=== PATIENT | female | born 1940 | race Caucasian/White ===

== ENCOUNTER → 2017-01-19 | Outpatient (CLI) | payer BC ==
[~2017-01-19] MED LIST: CTP1 PO; PRMUNK; SERT50TA PO; VERA120T15 PO
== END | disposition home or self-care (01) ==
LOC: C.LAB1850 11:23
PROVIDERS: ATTEND Nurse Practitioner Adult Health
DX: N39.0 Urinary tract infection, site not specified (principal)

== ENCOUNTER → 2017-01-20 | Outpatient (CLI) | payer BC ==
[2017-01-20 09:45] LABS: BASO % 1.3 %; BASO ABS # 0.06 K/uL (0-0.2); COMPLETE YES; EOS % 3.6 %; HEMATOCRIT 43.9 % (37-47); IG% 0.2 %; LYMPH % 35.3 %; LYMPH ABS # 1.59 K/uL (1.2-3.4); MEAN CELL VOLUME 91.3 fL (80-100); MEAN CORPUSCULAR HEMOGLOBIN 28.9 pg (25-34); MEAN CORPUSCULAR HGB CONC 31.7 g/dl (32-36); MEAN PLATELET VOLUME 9.7 fL (7.4-10.4); MONO % 11.3 %; NEUT % 48.3 %; PLATELET COUNT 282 K/uL (130-400); RED BLOOD COUNT 4.81 M/uL (4.2-5.4)
[2017-01-20 10:46] LABS: ALT/SGPT 24 U/L (12-78); AST/SGOT 15 U/L (15-37); BLOOD UREA NITROGEN 11 mg/dl (7-18); BUN/CREATININE RATIO 14.8 (10-20); CALCIUM 9.2 mg/dl (8.5-10.1); CARBON DIOXIDE 29 mmol/L (21-32); CHLORIDE 107 mmol/L (98-107); CREATININE 0.75 mg/dl (0.60-1.20); GLUCOSE 90 mg/dl (70-99); POTASSIUM 3.8 mmol/L (3.5-5.1); SODIUM 143 mmol/L (136-145)
--- NOTE | 2017-01-20 10:55 | DIAGNOSTIC IMAGING REPORT ---
RIGHT HIP UNILATERAL 2 VIEWS CLINICAL HISTORY: M25.559 Pain, joint, [id number] Right pain COMPARISON: None. DISCUSSION: Moderate degenerative narrowing right hip joint space. Mild sclerosis superior acetabular margin. Possible slight degree of disc blastic change. No evidence for acetabular protrusion. Large calcification central soft tissue pelvis possibly representing calcified uterine fibroid. There is no evidence for soft tissue swelling. IMPRESSION: Moderate degenerative change right hip. No acute process. Probable calcified uterine fibroid. Electronically signed by: Jan Thompson M.D. 01/20/2017 10:52 AM Dictated Date/Time: 01/20/2017 10:52 AM
[2017-01-20 10:56] LABS: ALB/GLOB RATIO 1.2 (0.9-2); ALKALINE PHOSPHATASE 79 U/L (45-117)
--- NOTE | 2017-01-25 11:46 | CODING QUERY MEDICAL NECESSITY ---
SUPPORTING DIAGNOSIS NEEDED A supporting diagnosis is required for the test/procedure performed on this patient in order for us to be reimbursed by the patient's insurance. Please provide a supporting diagnosis for the following test/procedure listed below next to the test name along with your signature. *If there is no additional diagnosis for this patient that would support the following test/procedure please document that below next to the test/procedure. Test(s)/Procedure(s) that require a supporting diagnosis: DOS 01/20 * Vitamin B12 DIAGNOSIS: * TSH DIAGNOSIS: Provider Signature: Date: Thank you Paz [facility] Information Management Once completed, please kindly fax back to [phone] For questions please call [phone]
== END | disposition home or self-care (01) ==
LOC: C.RAD1850 08:53
PROVIDERS: ATTEND Physician Assistant
DX: M25.559 Pain in unspecified hip (principal); R29.898 Other symptoms and signs involving the musculoskeletal system; E55.9 Vitamin D deficiency, unspecified; M16.11 Unilateral primary osteoarthritis, right hip

== ENCOUNTER → 2017-01-24 | Outpatient (CLI) | payer BC | END | disposition home or self-care (01) | LOC: C.LABSPEC 16:59 | PROVIDERS: ATTEND Nurse Practitioner Family | DX: N39.0 Urinary tract infection, site not specified (principal) ==

== ENCOUNTER → 2017-02-01 | Outpatient (CLI) | payer BC ==
--- NOTE | 2017-02-02 08:28 | MAMMOGRAPHY REPORT ---
BILATERAL DIGITAL SCREENING MAMMOGRAM WITH CAD: 02/01/2017 CLINICAL HISTORY: Routine screening. Patient has no complaints. TECHNIQUE: Bilateral CC, MLO, repeat right MLO and right XCCL views were obtained. Current study wa s also evaluated with a Computer Aided Detection (CAD) system. COMPARISON: Comparison is made to exams dated: 01/14/2016 mammogram, 10/02/2014 mammogram, 3 mammogram, 11/14/2012 mammogram, 05/08/2012 ultrasound, and 05/08/2012 mammogram - [facility]. BREAST COMPOSITION: The tissue of both breasts is heterogeneously dense, which may obscure small ma sses. FINDINGS: There are stable benign calcifications in the right breast. No new suspicious mass, archi tectural distortion or cluster of microcalcifications is seen. IMPRESSION: ACR BI-RADS CATEGORY 1: NEGATIVE There is no mammographic evidence of malignancy. A 1 year screening mammogram is recommended. The p atient will receive written notification of the results. Approximately 10% of breast cancers are not detected with mammography. A negative mammographic repor t should not delay biopsy if a clinically suggestive mass is present. Nirali Jean M.D. ay/:02/01/2017 15:54:32 [place] Filler: Ingrid MONTEMAYOR(R)(M), [facility] letter sent: Normal 1/2 BI-RADS Code: ACR BI-RADS Category 1: Negative
== END | disposition home or self-care (01) ==
LOC: C.MAMM 10:54
PROVIDERS: ATTEND Obstetrics & Gynecology
DX: Z12.31 Encounter for screening mammogram for malignant neoplasm of breast (principal)

== ENCOUNTER → 2017-03-15 | Outpatient (CLI) | payer BC ==
--- NOTE | 2017-03-15 15:44 | DIAGNOSTIC IMAGING REPORT ---
RIGHT HUMERUS MIN 2 VIEWS ROUTINE CLINICAL HISTORY: M79.601 Musculoskeletal arm pain, [id number] Right COMPARISON STUDY: None. FINDINGS: Small focus of calcification lateral to the humeral head consistent with supraspinatus calcific tendinitis. No fracture or dislocation within the right humerus. No soft tissue swelling. No radiopaque foreign bodies. IMPRESSION: 1. No fracture or dislocation within the right humerus. 2. Mild supraspinatus calcific tendinitis. Electronically signed by: Abdullahi Samayoa M.D. 03/15/2017 3:43 PM Dictated Date/Time: 03/15/2017 3:42 PM
== END | disposition home or self-care (01) ==
LOC: C.RAD1850 15:21
PROVIDERS: ATTEND Physician Assistant
DX: M79.601 Pain in right arm (principal)

== ENCOUNTER → 2017-08-24 | Outpatient (CLI) | payer BC | END | disposition home or self-care (01) | LOC: C.PAPS 08:03 | PROVIDERS: ATTEND Obstetrics & Gynecology | DX: Z12.4 Encounter for screening for malignant neoplasm of cervix (principal) ==

== ENCOUNTER → 2018-01-18 | Outpatient (CLI) | payer BC ==
[~2018-01-18] MED LIST changes: +ASPI81TA28 PO; +CALC600T37 PO; +CHOL1000 PO; +CRAN1TAB PO; +NITR-5 PO; +VERA180T33 PO
[2018-01-18 15:03] LABS: POTASSIUM 3.8 mmol/L (3.5-5.1)
== END | disposition home or self-care (01) ==
LOC: C.LAB1850 13:53
PROVIDERS: ATTEND Obstetrics & Gynecology
DX: Z01.818 Encounter for other preprocedural examination (principal)

== ENCOUNTER → 2018-01-25 | Day surgery (SDC) | payer BC ==
[2018-01-20 09:59] VITALS: Ht 157.5 cm; Wt 50.0 kg
--- NOTE | 2018-01-22 11:15 | HISTORY & PHYSICAL EXAMINATION ---
DATE OF ADMISSION: 01/25/2018 The patient is for surgery on 01/25/2018. CHIEF COMPLAINT: Postmenopausal bleeding. HISTORY OF PRESENT ILLNESS: The patient is a 77-year-old white female, 4, para 3-0-1-3 who was seen in the office on 01/18/2018 for postmenopausal bleeding. Ultrasound on that day showed uterus of 72 mL containing a fibroid of 4.3 cm. Endometrial lining measured up to 10.5 mm, however, with some microcysts seen. The patient did have a D&C in 1999 due to abnormal bleeding. Some benign tissue was removed along with a small submucous fibroid. The patient reports that she has had some bleeding on and off for several months now. Her last Pap smear was 08/2017 and this was negative. She has used hormone replacement therapy in the past, sometimes unopposed estrogen. Most recently she just uses a small amount of estrogen vaginal cream weekly. ALLERGIES: THE PATIENT LISTS SULFA DRUGS AND DEMEROL. MEDICATIONS: The patient uses fluticasone propionate nasal suspension once daily as needed, Verapamil 180 mg extended release 1 tablet daily, Premarin cream small amount to the vaginal introitus 3-4 times weekly, promethazine hydrochloride 12.5 mg 1-2 tablets every 6 hours as needed for nausea, aspirin 81 mg daily, Fioricet 1-2 tablets every 4 hours as needed for headache. She also takes calcium and cranberry supplements. ILLNESSES: The patient has a history of migraine headaches. Also, hypertension. She has also been diagnosed with prediabetes and has hyperlipidemia. History of urinary tract infections. Also, suffers with some anxiety. She had a heart murmur as a child. She has arthritis. PAST SURGICAL HISTORY: She has undergone cataract surgery. Also has had hip surgery for a fracture. In addition, a D&C in 1999 as above. She has had a breast cyst aspiration. FAMILY HISTORY: There is a family history of breast cancer with her paternal aunt having had this. Her father had gastric cancer. In addition, a reported history of kidney disease in her grandfather. SOCIAL HISTORY: The patient is . She denies smoking cigarettes or drinking alcohol. PHYSICAL EXAMINATION: VITAL SIGNS: Height 5 feet 2-1/4 inches, weight 111 pounds, blood pressure 126/74. HEENT: Grossly within normal limits. NECK: Supple without masses. CHEST: Her lungs are clear without wheezing. HEART: Regular rate and rhythm. No murmurs, gallops or rubs. ABDOMEN: Soft and nontender. PELVIC: External genitalia normal. Vagina pink and smooth. Cervix pink and closed with no lesions visible. Uterus is slightly enlarged and consistent with her fibroid uterus. Adnexa nontender with no masses palpable. EXTREMITIES: No cyanosis, clubbing or edema. IMPRESSION: A 77-year-old white female with post-menopausal bleeding. Endometrial lining appears thickened on ultrasound consistent with an endometrial mass or growth. PLAN: The patient is for hysteroscopy, dilation of the cervix and curettage with possible removal of polyp/lesion. The patient is aware of the risks of bleeding, infection, perforation of the uterus, and possible need for further treatment. The patient wishes to proceed with the surgery. LOKESH
[~2018-01-25] VITALS: Ht 157.5 cm; Wt 50.0 kg
[~2018-01-25] MED LIST changes: +ATROPINE SULFATE 0.1 MG/ML 5ML SYR IV PRN; -CTP1 PO; +DEXAMETHASONE SOD INJ 4 MG/ML VIAL ONE; +EpHEDrine SULFATE INJ 50 MG/ML AMP IV PRN; +FENTANYL CITRATE INJ 50 MCG/1 ML 2 ML VIAL IV PRN; +FENTANYL CITRATE INJ 50 MCG/1 ML 2 ML VIAL ONE; +IBUPROFEN 200 MG TAB ONE; +IBUPROFEN 600 MG TAB PO PRN; +LACTATED RINGER'S 1000ML 1,000 ML IV SCH; +LIDOCAINE HCL 2% 2 ML VIAL (20MG/ML) ONE; +MIDAZOLAM HCL 1 MG/ML 2ML VIAL ONE; +ONDANSETRON INJ 2 MG/ML 2 ML VIAL IV PRN; +ONDANSETRON INJ 2 MG/ML 2 ML VIAL ONE; -PRMUNK; +PROPOFOL IV EMULSION 10 MG/ML 20 ML VIAL IV ONE; -SERT50TA PO; +SODIUM CHLORIDE 0.9% 1000ML 1,000 ML IV SCH; -VERA120T15 PO
--- NOTE | 2018-01-25 14:02 | History & Physical Bridge - SC ---
H&P Re-Evaluation Bridge Note: I have examined the patient, reviewed the History & Physical and in the interval since the performance of the History & Physical I have noted the following changes of clinical significance: No changes noted
--- NOTE | 2018-01-25 15:19 | [facility] Post Operative Brief Note ---
Immediate Operative Summary Operative Date Jan 25, 2018. Pre-Operative Diagnosis Post Menopausal Bleeding, Endometrial Mass Post-Operative Diagnosis Same Procedure(s) Performed Dilatation And Curettage, Hysteroscopy, Polypectomy Surgeon Dr. Zavala Stock Preparer Surgeon(s) None Estimated Blood Loss 10 mL Findings Consistent with Post-Op Diagnosis Specimens A. Endocervical Curettings B. Endometrial Currettings C. Endometrial Polyp Drains None Anesthesia Type General Complication(s) none Disposition Disposition: Recovery Room / PACU
--- NOTE | 2018-01-25 15:29 | Discharge Instructions-SurgCtr ---
Discharge Instructions Date of Service Jan 25, 2018. Visit Reason for Visit: Post Menopausal Bleeding Discharge Discharge Diagnosis / Problem: S/P Hysteroscopy, D&C and polypectomy. Discharge Goals Goal(s): Diagnostic testing, Therapeutic intervention Activity Recommendations Activity Limitations: per Instructions/Follow-up section Anesthesia . Post Anesthesia Instructions: If you have had General Anesthesia or IV Sedation: * Do not drive today. * Resume driving when surgeon permits. * Do not make important decisions or sign legal documents today. * Call surgeon for: 1. Temperature elevations greater than 101 degrees F. 2. Uncontrollable pain. 3. Excessive bleeding. 4. Persistent nausea and vomiting. 5. Medication intolerance (nausea, vomiting or rash). * For nausea and vomiting use only clear liquids such as: tea, soda, bouillon until nausea subsides, then gradually increase diet as tolerated. * If you have any concerns or questions, call your surgeon's office. If physician is unavailable and it is an emergency, call 911 or go to the nearest emergency room. . Instructions / Follow-Up Instructions / Follow-Up ACTIVITY RECOMMENDATIONS: * Avoid tampons, douching, hot tubs, pools, and intercourse until bleeding has stopped. * May shower as usual. * No strenuous activity for 24-48 hours. After 24-48 hours, you may do anything you feel like doing (driving and sports are okay). SPECIAL CARE INSTRUCTIONS: Special Diet: * Mild nausea may occur in the immediate post-operative period. * Take clear liquids such as tea, cola or bouillon until all nausea has subsided; you may then resume your normal diet. Special Care: * Light bleeding and vaginal spotting can last from a few days to 3-4 weeks. Call your doctor if bleeding becomes heavier than the heaviest part of your period. * Check your temperature twice a day for one week. If it goes above 100.4 degrees Fahrenheit (38.0 Celsius), notify your doctor. Call if you develop a foul smelling vaginal discharge, have bleeding heavier than a period, or severe cramping. * Call your doctor's office for an appointment for 2-4 weeks after your surgery. [phone] FOLLOW-UP VISIT: Call your doctor's office for an appointment for 2-4 weeks after your surgery. [phone] Diet Recommendations Home Diet: resume previous diet Procedures Procedures Performed: Dilatation And Curettage, Hysteroscopy, Polypectomy Pending Studies Studies pending at discharge: yes List of pending studies: We will call you with the pathology report from the tissue removed. This can take up to a week. It appears to be a benign polyp. MD [facility] . Who to Call and When: Medical Emergencies: If at any time you feel your situation is an emergency, please call 911 immediately. . Non-Emergent Contact Non-Emergency issues call your: [facility] Call Non-Emergent contact if: temperature is above 100.5, your pain is worsening . . "Provider Documentation" section prepared by Brenda Zavala. .
[2018-01-25 16:00] VITALS: TEMP 36.3
--- NOTE | 2018-01-25 16:29 | OPERATIVE REPORT ---
DATE OF OPERATION: 01/25/2018 PREOPERATIVE DIAGNOSIS: Postmenopausal bleeding. POSTOPERATIVE DIAGNOSIS: Postmenopausal bleeding with endometrial polyp. PROCEDURE: Hysteroscopy, D and C, and polypectomy. SURGEON: Dr. Brenda Zavala ANESTHESIA: General. FACILITY MAINTENANCE TECHNICIAN: Dr. Mckeon PROCEDURE IN DETAIL: The patient was taken to the operating room where general anesthesia was administered. After an adequate level was obtained, she was placed in dorsal lithotomy position. Vulva, vagina, and cervix were prepped with Betadine solution. The patient was draped. The bladder was drained with a straight catheter. The anterior lip of the cervix was grasped with an Allis clamp. Endocervical curettings were obtained, though these were scant. The cervix was dilated up to a #23. Hysteroscope was introduced into the endometrial cavity. The cavity was visualized and there appeared to be one polypoid mass which was benign in appearance. Hysteroscope was removed. Polyp forceps were used and the bulk of the polyp removed with 2 passes of the polyp forceps. Hysteroscope was used to visualize the cavity once more and there was still about 1 cm of tissue remaining. MyoSure instrument was then introduced and the remaining polypoid tissue removed with it. MyoSure instrument was removed. A small serrated curet was then used and the endometrial cavity curetted for a scant amount of tissue. At this point, the procedure was ended. Estimated blood loss 10 mL. The patient tolerated the procedure well and was taken to the recovery room in good condition. I attest to the content of the Intraoperative Record and any orders documented therein. Any exceptions are noted below. LOKESH
[2018-01-25 16:31] VITALS: BP 164/84; PULSE 77; O2SAT 98
--- NOTE | 2018-01-25 16:36 | Anesthesia Progress Nt - [facility] ---
Anesthesia Post Op Note Date & Time Jan 25, 2018 at 16:35 Vital Signs Pain Intensity: 4.0 Vital Signs Past 12 Hours Date Time Temp Pulse Resp B/P (MAP) Pulse Ox O2 Delivery O2 Flow Rate FiO2 01/25/18 16:31 77 16 164/84 (110) 98 Room Air 01/25/18 16:00 36.3 72 16 177/72 (107) 98 Room Air 01/25/18 15:55 36.4 73 16 169/81 98 Room Air 01/25/18 15:51 172/83 01/25/18 15:47 72 22 168/88 98 01/25/18 15:47 74 22 01/25/18 15:46 165/113 01/25/18 15:42 79 20 01/25/18 15:42 82 20 95 01/25/18 15:41 159/77 01/25/18 15:37 76 21 01/25/18 15:37 75 21 100 01/25/18 15:36 143/76 01/25/18 15:32 84 31 100 01/25/18 15:32 83 31 01/25/18 15:31 82 15 150/66 100 01/25/18 15:31 83 15 01/25/18 15:27 36.3 80 14 148/72 100 Mask 6 01/25/18 15:26 79 15 01/25/18 15:26 80 15 148/72 100 01/25/18 13:06 36.6 71 18 146/84 (104) 98 Room Air Notes Mental Status: alert / awake / arousable, participated in evaluation Pt Amnestic to Procedure: Yes Nausea / Vomiting: adequately controlled Pain: adequately controlled Airway Patency, RR, SpO2: stable & adequate BP & HR: stable & adequate Hydration State: stable & adequate Anesthetic Complications: no major complications apparent The patient has a history of HTN. She did not take her BP medication today. She was instructed to take it when she gets home. She understands and agrees.
== END | disposition home or self-care (01) ==
LOC: X.SURG 12:57
PROVIDERS: ATTEND Obstetrics & Gynecology
DX: N95.0 Postmenopausal bleeding (principal); N84.0 Polyp of corpus uteri; K21.9 Gastro-esophageal reflux disease without esophagitis; I10 Essential (primary) hypertension; E78.5 Hyperlipidemia, unspecified; Z88.2 Allergy status to sulfonamides; Z79.82 Long term (current) use of aspirin; Z80.0 Family history of malignant neoplasm of digestive organs; Z80.3 Family history of malignant neoplasm of breast